=== PATIENT | female | born 1940 | race Hispanic/Latino ===

== ENCOUNTER 2017-04-20 13:03 | Outpatient (CLI) | payer MEDICARE ==
--- NOTE | 2017-04-20 15:49 | Mammography Report ---
BILATERAL MAMMOGRAM: FINDINGS: There are scattered fibroglandular densities (approximately 25%-50% glandular). No mass, distortion, suspicious calcification, or skin change is seen. Right breast surgeries with benign results. No significant change when compared to exams dating back to 2015. CAD was utilized. IMPRESSION: Negative mammogram. There is no mammographic evidence of malignancy. RECOMMENDATION: Follow-up per ACS guidelines. BI-RADS CATEGORY: 1 = Negative ACR BI-RADS MAMMOGRAPHIC CODES: 0 = Needs additional imaging evaluation; 1 = Negative; 2 = Benign; 3 = Probably benign; 4 = Suspicious; 5 = Malignant; 6 = Known biopsy-proven malignancy COMMENT: 1. Dense breast tissue, i.e., adenosis, fibrocystic changes, etc., may obscure an underlying neoplasm. 2. Approximately 10% of cancers are not detected with mammography. 3. A negative mammography report should not delay biopsy if a clinically suspicious mass is present. COMMENT: Patient follow-up letters are generated in [employer].
== END 2017-04-20 13:04 | disposition home or self-care (01) ==
LOC: MAMMO 13:03
PROVIDERS: ATTEND Internal Medicine
DX: Z12.31 Encounter for screening mammogram for malignant neoplasm of breast (principal)
CPT/HCPCS: 77067; G0202

== ENCOUNTER 2019-04-24 12:35 | Outpatient (CLI) | payer MEDICARE ==
--- NOTE | 2019-04-24 14:54 | Mammography Report ---
DIGITAL SCREENING MAMMOGRAM WITH CAD, 04/24/2019 INDICATION: Routine screening mammography. TECHNIQUE: Digital bilateral 2D mammography was obtained in the craniocaudal and mediolateral obliq ue projections. This examination was interpreted with the benefit of Computer-Aided Detection analysi s. COMPARISON: 04/21/2018 and mammograms going back to 04/15/2012 FINDINGS: Breast Density: The breasts are heterogeneously dense, which may obscure small masses. Left asymmetry on both views requires additional imaging. Scattered bilateral benign calcifications. No architectural distortion or suspicious calcifications. There is no evidence of dominant mass, susp icious calcifications or architectural distortion in the right breast. IMPRESSION: Left asymmetry requiring additional imaging. Recommend recall for left lateral and spot c ompression MLO and CC views and left breast ultrasound if needed. Follow up recommendation: Special View: Spot Category 0: Incomplete. Needs additional imaging evaluation and/or prior mammograms for comparison. A "normal" or negative report should not discourage follow up or biopsy of a clinically significant f inding. A written summary of these findings will be mailed to the patient. The patient will be entered into a mammography reporting system which will generate a reminder letter for the patient's next appointmen t at the appropriate interval. The [employer] recommends yearly mammograms starting at age 40 and continuing as l yane as a woman is in good health. Breast MRI is recommended for women with an approximate 20-25% or greater lifetime risk of breast cancer, including women with a strong family history of breast or ova lonnie cancer or who have been treated for Hodgkin's disease. Signer Name: Faustino Ruiz MD Signed: 04/24/2019 2:49 PM Workstation Name: [id number]
== END 2019-04-24 12:36 | disposition home or self-care (01) ==
LOC: MAMMO 12:35
PROVIDERS: ATTEND Internal Medicine
DX: Z12.31 Encounter for screening mammogram for malignant neoplasm of breast (principal)
CPT/HCPCS: 77067

== ENCOUNTER 2019-06-01 07:56 | Outpatient (CLI) | payer MEDICARE ==
--- NOTE | 2019-06-01 10:05 | Ultrasound Report ---
LEFT DIGITAL DIAGNOSTIC MAMMOGRAM WITH CAD 06/01/2019 LEFT COMPLETE BREAST ULTRASOUND INDICATION: Recall to evaluate a left asymmetry identified at screening. ABN MAMMO TECHNIQUE: Digital left mammographic imaging was performed. Spot compression views were obtained. Co mplete ultrasound of all four (4) quadrants was performed. This examination was interpreted with the benefit of Computer-Aided Detection (CAD) analysis. COMPARISON: 04/24/2019 screening mammogram. FINDINGS: Breast Density: The breasts are heterogeneously dense, which may obscure small masses. MAMMOGRAPHIC FINDINGS: ML and spot compression MLO and CC views were performed. An irregular focal as ymmetry persists on all views. ULTRASOUND FINDINGS: Complete sonographic evaluation of all 4 quadrants and retroareolar region was p erformed. Ultrasound demonstrated a solid irregular hypoechoic mass at 12:00 at the edge of the are sylvester measuring 1.6 x 1.4 x 1.2 cm. It produces shadowing and correlates with the mammographic density. A mass at 1:00 5 cm from the nipple produces a dense shadow and contains calcifications. It measures 9 x 8 x 8 mm and correlates with a heavily calcified mass on the mammogram. No other mass is identif ied. Ultrasound of the left axilla demonstrated a couple of benign-appearing lymph nodes. No suspicio us lymph nodes. IMPRESSION: A suspicious 1.6 cm left breast mass at 12:00. Recommend ultrasound-guided needle biopsy. A heavily calcified mass at 1:00 5 cm from the nipple is consistent with chronic benign fat necrosis and correlates with the remote history of a fall with trauma to the breast. I discussed the findings and the recommendation for an ultrasound-guided needle biopsy the patient at the time of the exam. Follow up recommendation: Biopsy BI-RADS Category 4: Suspicious for Malignancy. A "normal" or negative report should not discourage follow up or biopsy of a clinically significant f inding. A written summary of these findings will be mailed to the patient. The patient will be entered into a mammography reporting system which will generate a reminder letter for the patient's next appointmen t at the appropriate interval. According to the [employer], yearly mammograms are recommended starting at age 40 and continuing as long as a woman is in good health. Breast MRI is recommended for women with an don roximately 20-25% or greater lifetime risk of breast cancer, including women with a strong family his tory of breast or ovarian cancer and women who have been treated for Hodgkin's disease. Signer Name: Fautsino Ruiz MD Signed: 06/01/2019 10:01 AM Workstation Name: [id number]
== END 2019-06-01 07:57 | disposition home or self-care (01) ==
LOC: MAMMO 07:56
PROVIDERS: ATTEND Internal Medicine
DX: R92.8 Other abnormal and inconclusive findings on diagnostic imaging of breast (principal); N63.21 Unspecified lump in the left breast, upper outer quadrant

== ENCOUNTER 2019-06-08 14:31 | Outpatient (CLI) | payer MEDICARE ==
--- NOTE | 2019-06-08 15:45 | Ultrasound Report ---
ULTRASOUND-GUIDED NEEDLE CORE BIOPSY LEFT BREAST WITH CLIP PLACEMENT CLINICAL: Left breast mass. COMPARISON: 06/01/2019 FINDINGS: The procedure was explained to the patient and informed consent was obtained. Ultrasound demonstrated the previously identified the previously described solid irregular hypoechoic mass at 12:30 o'clock 2 cm from the nipple.. I marked the breast with a felt tip marker and a timeout was called. The skin was prepped with Chloro -Prep and anesthetized with 1% lidocaine. Needle core biopsy was performed through small dermatotomy using ultrasound guidance, 2% lidocaine wi th epinephrine for deep anesthesia and a 14-gauge Achieve biopsy device. 3 cores were obtained and pl aced in formalin. A HydroMark clip was deployed within the mass. The patient tolerated the procedure well and there were no apparent complications. Hemostasis was ach ieved with minimal effort and a sterile dressing was applied. A post procedure mammogram demonstrated satisfactory clip deployment. She left the department in good condition and was given instructions for wound care and follow-up. IMPRESSION: Uncomplicated ultrasound guided needle core biopsy with clip placement left breast. Signer Name: Faustino Ruiz MD Signed: 06/08/2019 3:41 PM Workstation Name: [id number]
--- NOTE | 2019-06-08 16:17 | Mammography Report ---
DIGITAL DIAGNOSTIC MAMMOGRAM WITH CAD, 06/08/2019 INDICATION: -post clip Lt TECHNIQUE: Digital left mammographic imaging was performed. This examination was interpreted with the benefit of Computer-aided Detection analysis. COMPARISON: 06/01/2019 FINDINGS: Breast Density: The breasts are heterogeneously dense, which may obscure small masses. A biopsy clip is now identified at 12:30 o'clock. The clip position is concordant on the lateral view. Although it is more medial than expected on the CC view, the clip position is concordant with the ultrasound find ing. IMPRESSION: Concordant clip position after ultrasound biopsy. Follow up recommendation: Surgical consult Post biopsy imaging. A "normal" or negative report should not discourage follow up or biopsy of a clinically significant f inding. A written summary of these findings will be mailed to the patient. The patient will be entered into a mammography reporting system which will generate a reminder letter for the patient's next appointmen t at the appropriate interval. According to the [employer], yearly mammograms are recommended starting at age 40 and continuing as long as a woman is in good health. Breast MRI is recommended for women with an don roximately 20-25% or greater lifetime risk of breast cancer, including women with a strong family his tory of breast or ovarian cancer and women who have been treated for Hodgkin's disease. Signer Name: Faustino Ruiz MD Signed: 06/08/2019 4:12 PM Workstation Name: [id number]
== END 2019-06-08 14:32 | disposition home or self-care (01) ==
LOC: SPVWC 14:31
PROVIDERS: ATTEND Internal Medicine
DX: N63.21 Unspecified lump in the left breast, upper outer quadrant (principal); C50.412 Malignant neoplasm of upper-outer quadrant of left female breast; Z88.8 Allergy status to other drugs, medicaments and biological substances
CPT/HCPCS: 88305; 88341; 88342; 88368

== ENCOUNTER 2019-07-10 11:17 | Outpatient (CLI) | payer MEDICARE ==
--- NOTE | 2019-07-10 16:29 | Ultrasound Report ---
COMPLETE BILATERAL BREAST ULTRASOUND HISTORY: Recently diagnosed left breast cancer. Unable to have an MRI. This study is being done to ev aluate for additional tumor in each breast. COMPARISON: 04/24/2019 screening mammogram and left breast ultrasound 06/01/2019 and 06/08/2019. FINDINGS: Complete sonographic evaluation of the right breast including imaging of the four quadrant s and subareolar areas reveals no suspicious finding. A septated benign cyst at 8:00 15 cm from the n ipple measures 8 x 7 x 4 mm and a benign cyst at 8:00 8 cm from the nipple measures 6 x 6 x 4 mm. Complete sonographic evaluation of the left breast including imaging of the four quadrants and subare olar areas reveals a solid irregular hypoechoic mass at 12:00 2 cm from the nipple measuring 2.9 x 1. 7 x 2.7 cm. It correlates with the known cancer. A solid hypoechoic heavily calcified mass at 2:00 5 cm from the nipple measures 0.9 x 0.8 x 0.8 cm and correlates with benign mammographic calcifications . No other significant finding in the left breast. The technologist measured additional structures wh ich I could not reproduce. Ultrasound of the left axilla demonstrated no suspicious lymph nodes. IMPRESSION: 1. A known left breast cancer at 12:00 2 cm from the nipple and no other suspicious lesion of the lef t breast. 2. Benign cysts of the right breast and no suspicious finding of the right breast. BI-RADS Category 6: Known Cancer Signer Name: Faustino Ruiz MD Signed: 07/10/2019 4:24 PM Workstation Name: [id number]
== END 2019-07-10 11:18 | disposition home or self-care (01) ==
LOC: SPVWC 11:17
PROVIDERS: ATTEND Surgery
DX: N60.01 Solitary cyst of right breast (principal); N63.42 Unspecified lump in left breast, subareolar; N63.21 Unspecified lump in the left breast, upper outer quadrant

== ENCOUNTER 2019-10-04 13:26 | Observation (INO) | payer MEDICARE ==
--- NOTE | 2019-10-04 07:32 | Anesthesia Consultation ---
Anesthesia Consult and Med Hx Date of service: 10/04/19 - Airway Anesthetic Teeth Evaluation: Good ROM Head & Neck: Adequate Mental/Hyoid Distance: Adequate Mallampati Class: Class II Intubation Access Assessment: Probably Good - Pulmonary Exam CTA: Yes - Cardiac Exam Cardiac Exam: RRR - Pre-Operative Health Status ASA Pre-Surgery Classification: ASA3 Proposed Anesthetic Plan: General Nerve Block: PEC - Pulmonary Hx Smoking: Yes (quit 35 yrs ago) SOB: Yes (chronic, noncardiac) Hx Sleep Apnea: Yes (no CPAP) - Cardiovascular System Hx Hypertension: Yes Hx Coronary Artery Disease: Yes (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; normal EF on TTE 2019) Hx Heart Attack/AMI: No Hx Angina: No (chronic noncardiac chest pain) Hx Percutaneous Transluminal Coronary Angioplasty (PTCA): No Hx Cardia Arrhythmia: No - Central Nervous System CVA: No Hx Back Pain: Yes - Gastrointestinal Hx Gastroesophageal Reflux Disease: Yes (well controlled) - Endocrine Hx Renal Disease: No Hx Liver Disease: No Hx Insulin Dependent Diabetes: No Hx Non-Insulin Dependent Diabetes: No Hx Thyroid Disease: No - Other Systems Hx Cancer: Yes (breast ca) Hx Obesity: Yes (BMI 40) - Additional Comments Anesthesia Medical History Comments: No hx anesthetic complications.
--- NOTE | 2019-10-04 07:32 | Anesthesia Day of Surgery ---
Anesthesia Day of Surgery - Day of Surgery Patient Examined: Yes Patient H&P Reviewed: Yes Patient is NPO: Yes
--- NOTE | 2019-10-04 10:20 | Mammography Report ---
MAMMOGRAPHIC GUIDED WIRE LOCALIZATION OF THE LEFT BREAST x2 INDICATION: Excisional procedure today COMPARISON: Screening mammogram 04/24/2019, left diagnostic mammogram 06/08/2019, left breast ultrasou nd 07/10/2019 APPROACH: Lateral DEVICE: Kopan's-type wire needle assemblies 7 and 10 cm ANESTHESIA: Local Procedure was discussed with the patient. Procedure was also discussed in advance with Dr. Ayon. Timeout was performed. Using aseptic technique, mammographic guided wire localization of the area of recent biopsy and the spiculated mass was performed successfully bracketing the area with 2 wires. T he initial wire into the mass was placed by me and the second wire was placed by Dr. Waggoner under my supervision. Patient tolerated the procedure well and was sent to the operating suite in good conditi on with marked images. IMPRESSION: Successful mammographic guided wire localization of the left breast x2 Signer Name: Allen Glover MD Signed: 10/04/2019 10:16 AM Workstation Name: [id number]
[~2019-10-04 13:26] MED LIST: BUPIVACAINE-EPINEPHRINE/PF 0.5%-1:200,000 (30 ML) VIAL INFILTRATI ONE; GABAPENTIN 300 MG CAP PO NR; GLYCOPYRROLATE 0.4 MG/2 ML INJ ONE; HYDROmorphone 1 MG/1 ML INJ ONE; LACTATED RINGERS 1,000 ML IV SCH; LACTATED RINGERS 1,000 ML ONE; LIDOCAINE (1%) 10 MG/1 ML VIAL 20 ML MDV ONE; LIDOCAINE MPF (2%) 20 MG/1 ML VIAL 5 ML ONE; MAGNESIUM OXIDE 400 MG TAB PO NR; METHYLENE BLUE 50 MG/10 ML AMP IV ONE; METHYLENE BLUE 50 MG/10 ML AMP ONE; MIDAZOLAM 2 MG/2 ML INJ IV NR; ONDANSETRON 4 MG/2 ML INJ ONE; PHENYLEPHRINE/NS 1,000 MCG/10 ML SYRINGE (OR USE) IV ONE; SUCCINYLCHOLINE CHLORIDE 200 MG/10 ML INJ MDV ONE; WATER FOR IRRIG STERILE 1,500 ML BOTTLE IR ONE; ceFAZolin/Water 2 GM/20 ML 2 GM/20 ML SYRINGE IV NR; dexAMETHasone 4 MG/ML VIAL ONE; fentaNYL 100 MCG/2 ML INJ IV PRN; fentaNYL 100 MCG/2 ML INJ ONE; propofoL 200 MG/20 ML VIAL IV ONE
--- NOTE | 2019-10-04 14:10 | Short Stay Summary ---
Short Stay Documentation Date of service: 10/04/19 - History H&P: obtained from office - Allergies and Medications Current Medications: Allergies bacitracin [From Neosporin ([id number])] Allergy (Verified 09/27/19 10:47) Swelling bacitracin zinc [From Neosporin ([id number])] Allergy (Verified 09/27/19 10:47) Swelling ibuprofen Allergy (Verified 09/27/19 10:47) Swelling neomycin sulfate [From Neosporin ([id number]-[id number])] Allergy (Verified 09/27/19 10:47) Swelling polymyxin B [From Neosporin (ahd-qns-cpofu)] Allergy (Verified 09/27/19 10:47) Swelling Home Medications Medication Instructions Recorded Confirmed Last Taken Type HYDROcodone/APAP 5-325 [[facility] 1 each PO BID 07/27/19 10/04/19 10/03/19 23:55 History 5/325] Meloxicam [Mobic] 7.5 mg PO BID 07/27/19 10/04/19 08/30/19 08:00 History Omeprazole 20 mg PO DAILY 07/27/19 10/04/19 09/30/19 10:00 History Simvastatin 40 mg PO DAILY 07/27/19 10/04/19 10/01/19 21:00 History hydroCHLOROthiazide [HCTZ] 25 mg PO QDAY 07/27/19 10/04/19 10/03/19 12:00 History Active Medications Fentanyl (Sublimaze) 100 mcg IV ONCE PRN PRN Reason: sedation for nerve block Stop: 10/04/19 23:00 Last Admin: 10/04/19 08:59 Dose: 100 mcg Documented by: Fentanyl (Sublimaze) 50 mcg IV Q5MIN PRN PRN Reason: Pain , Severe (7-10) Stop: 10/04/19 23:00 Gabapentin (Gabapentin) 300 mg PO PREOP NR Stop: 10/04/19 23:00 Last Admin: 10/04/19 07:25 Dose: 300 mg Documented by: Cefazolin Sodium (Ancef/Sterile Water 2 Gm/20 Ml) 2 gm in 20 mls @ 80 mls/hr IV PREOP NR; Protocol Stop: 10/04/19 20:00 Lactated Ringer's (Lactated Ringers) 1,000 mls @ 100 mls/hr IV DIRECT TORIBIO Stop: 10/04/19 23:59 Last Admin: 10/04/19 08:45 Dose: 100 mls/hr Documented by: Magnesium Oxide (Mag-Ox) 400 mg PO PREOP NR Stop: 10/04/19 23:00 Last Admin: 10/04/19 07:25 Dose: 400 mg Documented by: Midazolam HCl (Versed) 2 mg IV PREOP NR Stop: 10/04/19 23:00 Last Admin: 10/04/19 08:58 Dose: 2 mg Documented by: - Brief post op/procedure progress note Date of procedure: 10/04/19 Pre-op diagnosis: Left breast cancer upper outer quadrant Post-op diagnosis: same Procedure: Left needle localization partial mastectomy with SLNB Anesthesia: GETA Findings: Left partial mastectomy; left axilla with low uptake and 2 SLNs submitted Surgeon: BRIANA BARKER Forming Roll Operator: DELL GIFFORD Estimated blood loss: other (50 cc) Pathology: list (left partial mastectomy; x2 slns) Specimen disposition: to lab Condition: stable - Disposition Condition at discharge: Good Disposition: DC-01 TO HOME OR SELFCARE Short Stay Discharge Plan Activity: other (no heavy lifting) Diet: regular Wound: keep clean and dry (wear breast binder; may shower in 48 hours; no baths, pools or lakes) Follow up with: NAKIA COREA MD [Primary Care Provider] - 7 Days BRIANA BARKER MD [Staff Physician] - 7 Days
--- NOTE | 2019-10-04 14:24 | Mammography Report ---
Left breast tissue specimen radiograph INDICATION: Excisional procedure today Specimen contains the end of both wires, the site of recent biopsy including the clip and the spicula ronda mass. Findings were reviewed with Dr. Ayon at time of service. IMPRESSION: Satisfactory specimen radiograph Signer Name: Allen Glover MD Signed: 10/04/2019 2:20 PM Workstation Name: [id number]
--- NOTE | 2019-10-04 14:35 | Operative Report ---
Operative Report Operative Report: Operative Report: October 04, 2019 Preoperative diagnosis: Left breast cancer of the upper outer quadrant Postoperative diagnosis: Same Procedure: Left needle localization partial mastectomy of the upper outer quadrant and SLNB Surgeon: Phoebe Ayon MD Fisheries Specialist: Agustin Woodson MD Anesthesia: General Findings: Left breast with wires, mass and clip present within radiograph specimen; x2 SLNs-minimal uptake within the axilla Complications: None EBL: 50 cc Drains: None Disposition: PACU in good condition Indications for operative procedure: This is a 78 year old lady with newly diagnosed left breast cancer of the upper outer quadrant, Stage I [id number] ER/MA positive (left breast cancer at 12:00 position 3-4 cm FN). Patient wanted to proceed with breast conservation with recommendations as well. She understands the role of adjuvant radiation therapy as well as the role of chemotherapy if indicated-Oncotype DX/Mammoprint. She has a personal history of right breast cancer diagnosed in 2003 and underwent a right partial mastectomy with ALND. Genetic testing recently obtained with no significant gene mutation. She has met with medical oncology and radiation oncology as well. She wished to proceed with the above procedure. Procedure in detail: Patient had 2 wires placed by radiologist Dr. Glover and Dr. Waggoner. Dr. Ruiz originally performed her left breast biopsy with findings of invasive ductal cancer at 12:00 position and upon further review of mammogram today radiologist Dr. Glover saw a second area mmore laterally aroundn 1-2:00 position and he question if biopsy clip was discordantly placed although Dr. Ruiz dictated clip concordance. Dr. Glover recommended both areas be removed given second area highly suspicous for malignancy and he thought second area was the mass of concern. Bilateral breast ultrasound performed with no additional masses seen. Radiology placed 2 wires to bracket both areas for excision (Dr. Glover and Dr. Waggoner placed wires). Anesthesia placed left pectoral block. Patient was then taken to the operating room. Gen. anesthesia was administered. The left nipple was injected with radioisotope and 1 cc of Methylene blue dye given minimal uptake from radioisotope. Left breast wires were identified of the upper outer quadrant. Left breast and axilla were prepped and draped in the normal sterile operative fashion. Ultrasound was used as well-mass not well defined on ultrasound, cancer located at the 12:00 position. Timeout was performed. Gamma probe was inserted into the axilla. Minimal uptake was identified within the axilla of less than 10 on the gamma probe. A left axillary incision was made with a 15 blade knife with dissection taken down to the subcutaneous tissues. The axillary fascia was opened with the Bovie cautery. Low uptake was noted that identified two SLNs with no blue dye present. SLNs were sent to pathology for permanent section. The axilla was examined further with no uptake present and ultrasound used as well with benign appearing axillary lymph nodes but nodes were note removed given no uptake present. Did not proceed with an ALND because will await final pathology of SLNs removed but upon examination, nodes were not palpable from SLNs removed and area removed my represent lymphatics. Hemostasis was obtained with Bovie cautery. The axillary cavity was irrigated and suctioned. The axillary fascia was approximated and closed using interrupted 3-0 Vicryl. The subcutaneous tissues were approximated and closed using interrupted 3-0 Vicryl followed by closing of the skin with a running 4-0 Monocryl and skin affix. Attention was then taken towards the left breast. Wires were noted, an upper outer quadrant incision was made with a 15 blade knife. Started with the raising of the superior flap and removal of wire from the skin, the second wire was retracted within the breast cavity; the superior flap was raised with dissection carried down to the pectoralis muscle, followed by raising of the inferior flap, medial flap and lateral flap with all flaps taken down to the pectoralis muscle. The breast area of concern was appropriately removed posteriorly from the pectoralis muscle with the aid of the Bovie cautery. The wires were present as well. Specimen was marked and then sent to pathology and radiology; radiograph specimen with wires, mass and clip present. Breast cavity was irrigated and hemostasis was obtained. The posterior deep breast tissues were approximated and closed using interrupted 3-0 Vicryl. The subcutaneous tissues were approximated and closed using interrupted 3-0 Vicryl followed by closing of the skin with a running 4-0 Monocryl and skin affix. The patient tolerated surgery very well and she was awaken from anesthesia without any complication and transported to PACU in good condition. Once final pathology is available, if no SLNs are present, will discuss with patient about proceeding with an ALND.
[2019-10-04] MEDS ORDERED: GLYCOPYRROLATE 0.4 MG/2 ML INJ ONE (14:49)
[2019-10-04] MEDS ORDERED: ROCURONIUM 50 MG/5 ML INJ IV ONE (14:49)
[2019-10-04] MEDS ORDERED: NEOSTIGMINE 10MG/10 ML INJ MDV ONE (14:49)
[2019-10-04] MEDS ORDERED: METOCLOPRAMIDE 10 MG TAB PO PRN (15:37)
[2019-10-04] MEDS ORDERED: ONDANSETRON 4 MG/2 ML INJ IV PRN (15:37)
[2019-10-04] MEDS ORDERED: diphenhydrAMINE 25 MG CAP PO PRN (15:37)
[2019-10-04] MEDS ORDERED: ACETAMINOPHEN 325 MG TAB PO PRN (15:37)
[2019-10-04] MEDS ORDERED: oxyCODONE /ACETAMINOPHEN 5-325MG TAB PO PRN (15:37)
[2019-10-04] MEDS ORDERED: LACTATED RINGERS 1,000 ML IV SCH (16:00)
--- NOTE | 2019-10-04 18:13 | Post Anesthesia Evaluation ---
- Post Anesthesia Evaluation Patient Participated: Yes Airway Patent: Yes Stable Respiratory Function: Yes Nausea/Vomiting: No Temp > 96.8F: Yes Pain Manageable: Yes Adequeate Hydration: Yes Anesthesia Complications: No
[2019-10-04] MEDS ORDERED: DOCUSATE SODIUM 100 MG CAP PO SCH (22:00)
--- NOTE | 2019-10-05 07:07 | Progress Note ---
Assessment and Plan This is a 78 year old lady POD#1 left partial mastectomy with SLNB. No acute events overnight. 1. Left breast and axillary incision healing well, incision c/d/i. 2. Pain in good control. 3. OOB to hallway. 4. D/C planning for this am. Subjective Date of service: 10/05/19 Principal diagnosis: Left breast cancer upper outer quadrant Interval history: POD#1 left total mastectomy with SLNB Objective - Constitutional Vitals: Vital Signs - 12hr 10/04/19 10/05/19 10/05/19 19:30 00:00 04:37 Temperature 98.6 F 98.6 F 97.3 F L Pulse Rate 66 74 72 Respiratory 16 18 18 Rate Blood Pressure 121/51 Blood Pressure 120/61 104/66 [Right] O2 Sat by Pulse 93 Oximetry General appearance: Present: no acute distress - EENT Eyes: PERRL, EOM intact ENT: hearing intact, dentition normal Ears: bilateral: normal - Neck Neck: supple, normal ROM - Respiratory Respiratory effort: normal - Breasts Breasts: other (left breast and axillary incisions healing well, no hematoma, minimal tenderness, skin well perfused) - Cardiovascular Rhythm: regular Extremities: no ischemia, pulses intact, pulses symmetrical, No edema, normal temperature, normal color, Full ROM - Gastrointestinal General gastrointestinal: Present: soft, non-tender, non-distended Rectal Exam: deferred - Genitourinary Female genitourinary: deferred - Integumentary Integumentary: clear, warm, dry - Musculoskeletal Musculoskeletal: strength equal bilaterally - Neurologic Neurologic: CNII-XII intact, moves all extremities - Psychiatric Psychiatric: appropriate mood/affect, intact judgment & insight, memory intact, cooperative Medications & Allergies - Medications Allergies/Adverse Reactions: Allergies bacitracin [From Neosporin ([id number])] Allergy (Verified 09/27/19 10:47) Swelling bacitracin zinc [From Neosporin ([id number]-[id number])] Allergy (Verified 09/27/19 10:47) Swelling ibuprofen Allergy (Verified 09/27/19 10:47) Swelling neomycin sulfate [From Neosporin ([id number]-jvx-[id number])] Allergy (Verified 09/27/19 10:47) Swelling polymyxin B [From Neosporin ([id number]-muv-[id number])] Allergy (Verified 09/27/19 10:47) Swelling Home Medications: Home Medications Medication Instructions Recorded Confirmed Last Taken Type HYDROcodone/APAP 5-325 [[place] 1 each PO BID 07/27/19 10/04/19 10/03/19 23:55 History 5/325] Meloxicam [Mobic] 7.5 mg PO BID 07/27/19 10/04/19 08/30/19 08:00 History Omeprazole 20 mg PO DAILY 07/27/19 10/04/19 09/30/19 10:00 History Simvastatin 40 mg PO DAILY 07/27/19 10/04/19 10/01/19 21:00 History hydroCHLOROthiazide [HCTZ] 25 mg PO QDAY 07/27/19 10/04/19 10/03/19 12:00 History HYDROcodone/APAP 5-325 [[place] 1 each PO Q6HR PRN #20 tablet 10/04/19 Unknown Rx 5/325] Active Medications: Generic Name Dose Route Start Last Admin Trade Name Freq PRN Reason Stop Dose Admin Acetaminophen 650 mg 10/04/19 15:37 Tylenol PO Q6H PRN Pain MILD(1-3)/Fever >100.5/MORALES Diphenhydramine HCl 25 mg 10/04/19 15:37 Benadryl PO Q8H PRN Itching Docusate Sodium 100 mg 10/04/19 22:00 Colace PO BID TORIBIO Lactated Ringer's 1,000 mls @ 125 mls/hr 10/04/19 16:00 Lactated Ringers IV DIRECT TORIBIO Metoclopramide HCl 10 mg 10/04/19 15:37 Reglan PO Q6H PRN Nausea And Vomiting Ondansetron HCl 4 mg 10/04/19 15:37 Zofran IV Q8H PRN N/V unrelieved by Reglan Oxycodone/Acetaminophen 1 tab 10/04/19 15:37 10/05/19 03:57 Percocet 5/325 PO 1 tab Q6H PRN Administration Pain, Moderate (4-6) Sodium Chloride 10 ml 10/04/19 15:37 Sodium Chloride Flush Syringe 10 Ml IV PRN PRN LINE FLUSH
[2019-10-05 08:49] VITALS: BP 129/57
== END 2019-10-05 09:00 | disposition home or self-care (01) ==
LOC: OR 13:26 → OB 15:37
PROVIDERS: ADMIT Surgery; ATTEND Surgery
DX: Z03.818 Encounter for observation for suspected exposure to other biological agents ruled out (principal); C50.412 Malignant neoplasm of upper-outer quadrant of left female breast; Z79.899 Other long term (current) drug therapy; Z88.2 Allergy status to sulfonamides; Z88.3 Allergy status to other anti-infective agents; Z88.1 Allergy status to other antibiotic agents; Z88.8 Allergy status to other drugs, medicaments and biological substances
CPT/HCPCS: 19281; 19301; 38525; 64450; 76098; 78800; 88307; 88333; 96374; 96375; A9541; G0378; J0330; J0690; J1100; J1170; J2250; J2370; J2405; J2704; J2710; J3010; J7120; Q9968; U0003; 88311; 88342

== ENCOUNTER 2019-11-13 05:49 | Observation (INO) | payer MEDICARE ==
--- NOTE | 2019-11-09 10:51 | Anesthesia Consultation ---
Anesthesia Consult and Med Hx Date of service: 11/13/19 - Airway Anesthetic Teeth Evaluation: Good ROM Head & Neck: Adequate Mental/Hyoid Distance: Adequate Mallampati Class: Class I Intubation Access Assessment: Good (previous easy intubation with MAC 3) - Pulmonary Exam CTA: Yes - Cardiac Exam Cardiac Exam: RRR - Pre-Operative Health Status ASA Pre-Surgery Classification: ASA3 Proposed Anesthetic Plan: General Nerve Block: PEC - Pulmonary Hx Smoking: Yes (quit 35 yrs ago) SOB: Yes (chronic, noncardiac) Hx Sleep Apnea: Yes (no CPAP) - Cardiovascular System Hx Hypertension: Yes Hx Coronary Artery Disease: Yes (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; normal EF on TTE 2019) Hx Heart Attack/AMI: No Hx Angina: No (chronic noncardiac chest pain) Hx Percutaneous Transluminal Coronary Angioplasty (PTCA): No Hx Cardia Arrhythmia: No - Central Nervous System CVA: No Hx Back Pain: Yes Hx Psychiatric Problems: No - Gastrointestinal Hx Gastroesophageal Reflux Disease: Yes (well controlled) - Endocrine Hx Renal Disease: No Hx Liver Disease: No Hx Insulin Dependent Diabetes: No Hx Non-Insulin Dependent Diabetes: No Hx Thyroid Disease: No - Other Systems Hx Cancer: Yes (breast ca) Hx Obesity: Yes (BMI 40) - Additional Comments Anesthesia Medical History Comments: No hx anesthetic complications.
[2019-11-09 10:54] LABS: Calcium 9.6 mg/dL (8.4-10.2)
[2019-11-09 10:58] LABS: Basophils % (Auto) 0.6 % (0.0-1.8); Eosinophils # (Auto) 0.1 K/mm3 (0.0-0.4); Hematocrit 40.9 % (30.3-42.9); Hemoglobin 13.5 gm/dl (10.1-14.3); Lymphocytes # (Auto) 1.6 K/mm3 (1.2-5.4); Lymphocytes % (Auto) 23.9 % (13.4-35.0); Mean Corpuscular HGB Conc 33 % (30-34); Mean Corpuscular Volume 93 fl (79-97); Monocytes # (Auto) 0.7 K/mm3 (0.0-0.8); Platelet Count 250 K/mm3 (140-440); Red Blood Count 4.41 M/mm3 (3.65-5.03); Red Cell Distribution Width 13.6 % (13.2-15.2)
[~2019-11-13 05:49] MED LIST changes: -BUPIVACAINE-EPINEPHRINE/PF 0.5%-1:200,000 (30 ML) VIAL INFILTRATI ONE; -GABAPENTIN 300 MG CAP PO NR; -GLYCOPYRROLATE 0.4 MG/2 ML INJ ONE; -HYDROmorphone 1 MG/1 ML INJ ONE; -LACTATED RINGERS 1,000 ML ONE; -LIDOCAINE (1%) 10 MG/1 ML VIAL 20 ML MDV ONE; -LIDOCAINE MPF (2%) 20 MG/1 ML VIAL 5 ML ONE; -MAGNESIUM OXIDE 400 MG TAB PO NR; -METHYLENE BLUE 50 MG/10 ML AMP IV ONE; -METHYLENE BLUE 50 MG/10 ML AMP ONE; -MIDAZOLAM 2 MG/2 ML INJ IV NR; -ONDANSETRON 4 MG/2 ML INJ ONE; -PHENYLEPHRINE/NS 1,000 MCG/10 ML SYRINGE (OR USE) IV ONE; -SUCCINYLCHOLINE CHLORIDE 200 MG/10 ML INJ MDV ONE; -WATER FOR IRRIG STERILE 1,500 ML BOTTLE IR ONE; -ceFAZolin/Water 2 GM/20 ML 2 GM/20 ML SYRINGE IV NR; -dexAMETHasone 4 MG/ML VIAL ONE; -fentaNYL 100 MCG/2 ML INJ IV PRN; -fentaNYL 100 MCG/2 ML INJ ONE; -propofoL 200 MG/20 ML VIAL IV ONE
[2019-11-13] MEDS ORDERED: GABAPENTIN 300 MG CAP PO NR (06:00)
[2019-11-13] MEDS ORDERED: fentaNYL 100 MCG/2 ML INJ IV PRN (06:00)
[2019-11-13] MEDS ORDERED: MIDAZOLAM 2 MG/2 ML INJ IV NR (06:00)
[2019-11-13] MEDS ORDERED: MAGNESIUM OXIDE 400 MG TAB PO SCH (06:00)
[2019-11-13] MEDS ORDERED: ceFAZolin/Water 2 GM/20 ML 2 GM/20 ML SYRINGE IV NR (06:00)
[2019-11-13] MEDS ORDERED: ACETAMINOPHEN 500 MG TAB PO NR (06:00)
[2019-11-13] MEDS ORDERED: BACTERIOSTATIC SODIUM CHLORIDE 0.9% 30 ML VIAL INFILTRATI ONE (06:13)
[2019-11-13] MEDS ORDERED: dexAMETHasone 4 MG/ML VIAL ONE (07:19)
[2019-11-13] MEDS ORDERED: BUPIVACAINE-EPINEPHRINE/PF 0.5%-1:200,000 (30 ML) VIAL INFILTRATI ONE (07:19)
[2019-11-13] MEDS ORDERED: ONDANSETRON 4 MG/2 ML INJ ONE (07:30)
[2019-11-13] MEDS ORDERED: LIDOCAINE MPF (2%) 20 MG/1 ML VIAL 5 ML ONE (07:30)
[2019-11-13] MEDS ORDERED: ROCURONIUM 50 MG/5 ML INJ IV ONE (07:30)
[2019-11-13] MEDS ORDERED: dexAMETHasone 20 MG/5 ML VIAL ONE (07:30)
[2019-11-13] MEDS ORDERED: METHYLENE BLUE 50 MG/10 ML AMP ONE (07:30)
[2019-11-13] MEDS ORDERED: HYDROmorphone 1 MG/1 ML INJ ONE (07:30)
[2019-11-13] MEDS ORDERED: propofoL 200 MG/20 ML VIAL IV ONE (07:30)
[2019-11-13] MEDS ORDERED: SODIUM CHLORIDE P/F VIAL 10 ML 10 ML ONE (07:31)
[2019-11-13] MEDS ORDERED: SODIUM CHLORIDE 0.9% P/F 10 ML VIAL INFILTRATI ONE (08:40)
[2019-11-13] MEDS ORDERED: METHYLENE BLUE 50 MG/10 ML AMP IRRIGATION ONE (08:40)
--- NOTE | 2019-11-13 08:53 | Anesthesia Day of Surgery ---
Anesthesia Day of Surgery - Day of Surgery Patient Examined: Yes Patient H&P Reviewed: Yes Patient is NPO: Yes
[2019-11-13] MEDS ORDERED: HYDROmorphone 1 MG/1 ML INJ IV PRN (08:54)
[2019-11-13] MEDS ORDERED: WATER FOR IRRIG STERILE 1,500 ML BOTTLE IR ONE (09:08)
[2019-11-13] MEDS ORDERED: LACTATED RINGERS 1,000 ML ONE (10:07)
[2019-11-13] MEDS ORDERED: fentaNYL 100 MCG/2 ML INJ ONE (12:31)
[2019-11-13] MEDS ORDERED: GLYCOPYRROLATE 0.4 MG/2 ML INJ ONE (12:52)
[2019-11-13] MEDS ORDERED: NEOSTIGMINE 10MG/10 ML INJ MDV ONE (12:52)
[2019-11-13] MEDS ORDERED: PHENYLEPHRINE/NS 1,000 MCG/10 ML SYRINGE (OR USE) IV ONE (12:53)
--- NOTE | 2019-11-13 13:12 | Operative Report ---
Operative Report Operative Report: Operative Report: Date of Service: November 13, 2019 Preoperative diagnosis: Left breast cancer of the upper outer quadrant Postoperative diagnosis: Same Procedure: Left total mastectomy with sentinel lymph node biopsy Surgeon: Phoebe Ayon M.D. Prefabricator: Phoenix Marshall M.D. Anesthesia: Gen. Findings: Left total mastectomy; x2 sentinel lymph nodes identified and negative for malignancy on frozen section of pathology Complications: None Drains: 2 19 Divehi JENIFER drains Estimated blood loss: 50-100 cc Disposition: PACU in good condition Indications for operative procedure: This is a 79-year-old lady with newly diagnosed stage II left breast cancer of the upper outer quadrant, ILCA [id number] ER/CA positive. She recently underwent a left partial mastectomy with sentinel lymph node biopsy with no intraoperative lymph nodes identified and final pathology of invasive lobular carcinoma grade 2 of the upper outer quadrant at least 55 mm with a single focus with no DCIS, closest margin less than 0.5 mm from the caudal and deep margins and all other margins less than 0.5 mm from lateral margin and 1 mm from medial margin. Discussed with patient regarding margin revision versus total mastectomy and I favor total mastectomy given area of cancer was not initially seen on any imaging-typical for ILCA. Patient wished to proceed with a left total mastectomy as well. Also discussed will reattempt sentinel lymph node biopsy with a double injection of radioisotope as well as additional methylene blue dye. Patient also with a prior history of right breast cancer in 2003 and underwent a right lumpectomy with SLNB. She declined plastic surgery. She understands to role of adjuvant XRT and medical oncology will obtain Oncotype DX for evaluation for adjuvant chemotherapy. She wished to proceed with the above procedure. Procedure in detail: Anesthesia placed left pectoral muscle block. The patient was taken to the operating room and was placed supine. Gen. anesthesia was administered. The left nipple was injected with two doses of radioisotope and 2 cc of methylene blue with 2 cc of saline. Left chest and axilla was prepped and draped in the normal sterile operative fashion. Timeout was performed. Typical mastectomy incision marking was made. Attention was taken towards the left breast. A gamma probe was inserted into the axilla to identify the sentinel lymph node location with uptake noted. Skin markings were made to include the area of known cancer. A skin incision was made with a 10 blade knife and dissection taken down to the subcutaneous tissues. First began raising of the superior flap to the level of the clavicle superiorly and posteriorly to the pectoralis muscle. Followed by raising of the medial flap to the level of the sternum and posteriorly to the pectoralis muscle. Followed by raising of the lateral flap to the level of the latissimus dorsi muscle and taken down posteriorly. The gamma probe was inserted into the axilla, the axillary fascia was opened and 2 SLNS were identified that were dissected free and sent to pathology. All SLNs sent to pathology with findings negative for malignancy on frozen section. Then proceeded with raising of the inferior flap to the level of the inframammary fold taken posterior to the pectoralis muscle. The mastectomy/breast was removed from the pectoralis muscle without incident. The specimen was appropriately marked and sent to pathology. Hemostasis was obtained. The chest wall cavity was irrigated. Two 19 Divehi JENIFER drains were placed. Throughout the case breast tissue was noted to be vascular with oozing throughout but hemostasis was well obtained prior to closure. Sarahy placed as well. The subcutaneous tissues were approximated and closed using interrupted 3- 0 Vicryl and the skin closed using 4-0 running Monocryl followed by dermabond. She tolerated surgery very well and was awaken from anesthesia without any complications and transported to PACU in good condition.
--- NOTE | 2019-11-13 13:15 | Short Stay Summary ---
Short Stay Documentation Date of service: 11/13/19 - History H&P: obtained from office - Allergies and Medications Current Medications: Allergies bacitracin [From Neosporin ([id number]-ajl-[id number])] Allergy (Verified 11/07/19 11:37) Swelling bacitracin zinc [From Neosporin (bzs-akt-wywro)] Allergy (Verified 11/07/19 11:37) Swelling ibuprofen Allergy (Verified 11/07/19 11:37) Swelling neomycin sulfate [From Neosporin (fgo-cto-esprv)] Allergy (Verified 11/07/19 11:37) Swelling polymyxin B [From Neosporin (emq-rwp-vonbd)] Allergy (Verified 11/07/19 11:37) Swelling Home Medications Medication Instructions Recorded Confirmed Last Taken Type Meloxicam [Mobic] 7.5 mg PO BID 07/27/19 11/13/19 1 Week Ago History ~11/06/19 Omeprazole 20 mg PO DAILY 07/27/19 11/13/19 2 Weeks Ago History ~10/30/19 Simvastatin 40 mg PO DAILY 07/27/19 11/13/19 1 Month Ago History ~10/14/19 hydroCHLOROthiazide [HCTZ] 25 mg PO QDAY 07/27/19 11/13/19 11/12/19 History HYDROcodone/APAP 5-325 5 - 325 mg PO PRN PRN 11/13/19 11/13/19 11/13/19 04:30 History Active Medications Acetaminophen (Tylenol) 1,000 mg PO ONCE NR Stop: 11/13/19 23:59 Last Admin: 11/13/19 06:50 Dose: 1,000 mg Documented by: Fentanyl (Sublimaze) 100 mcg IV ONCE PRN PRN Reason: sedation for nerve block Last Admin: 11/13/19 07:22 Dose: 100 mcg Documented by: Gabapentin (Gabapentin) 300 mg PO PREOP NR Stop: 11/13/19 23:59 Last Admin: 11/13/19 06:50 Dose: 300 mg Documented by: Hydromorphone HCl (Dilaudid) 0.5 mg IV Q10MIN PRN PRN Reason: Pain , Severe (7-10) Stop: 11/13/19 20:00 Cefazolin Sodium (Ancef/Sterile Water 2 Gm/20 Ml) 2 gm in 20 mls @ 80 mls/hr IV PREOP NR; Protocol Stop: 11/13/19 23:00 Lactated Ringer's (Lactated Ringers) 1,000 mls @ 100 mls/hr IV DIRECT TORIBIO Stop: 11/13/19 23:59 Last Admin: 11/13/19 06:45 Dose: 100 mls/hr Documented by: Magnesium Oxide (Mag-Ox) 400 mg PO PREOP TORIBIO Stop: 11/13/19 23:59 Last Admin: 11/13/19 06:50 Dose: 400 mg Documented by: Midazolam HCl (Versed) 2 mg IV PREOP NR Stop: 11/13/19 23:59 Last Admin: 11/13/19 07:22 Dose: 2 mg Documented by: - Brief post op/procedure progress note Date of procedure: 11/13/19 Pre-op diagnosis: Left breast cancer upper outer quadrant Post-op diagnosis: same Procedure: Left total mastectomy with SLNB Anesthesia: GETA Findings: Left tot mastectomy; x2 SLNs and negative for malignancy on frozen section Surgeon: BRIANA BARKER Estimated blood loss: 50-100ml Pathology: list (left total mastectomy; x2 slns) Specimen disposition: to lab Condition: stable - Disposition Condition at discharge: Good Disposition: DC/TX-02 SHRT-TRM GEN HOSP IP Short Stay Discharge Plan Activity: other (no heavy lifting) Diet: regular Wound: keep clean and dry (wear breast binder) Follow up with: NAKIA COREA MD [Primary Care Provider] - 7 Days BRIANA BARKER MD [Staff Physician] - 7 Days
[2019-11-13] MEDS ORDERED: ONDANSETRON 4 MG/2 ML INJ IV PRN (13:16)
[2019-11-13] MEDS ORDERED: oxyCODONE /ACETAMINOPHEN 5-325MG TAB PO PRN (13:16)
[2019-11-13] MEDS ORDERED: METOCLOPRAMIDE 10 MG TAB PO PRN (13:16)
[2019-11-13] MEDS ORDERED: diphenhydrAMINE 25 MG CAP PO PRN (13:16)
[2019-11-13] MEDS ORDERED: ACETAMINOPHEN 325 MG TAB PO PRN (13:16)
[2019-11-13] MEDS ORDERED: MORPHINE 2 MG/1 ML INJ IV PRN (13:17)
[2019-11-13] MEDS ORDERED: LACTATED RINGERS 1,000 ML IV SCH (14:00)
[2019-11-13] MEDS: DOCUSATE SODIUM 100 MG CAP PO SCH (21:36)
--- NOTE | 2019-11-14 06:38 | Progress Note ---
Assessment and Plan This is a 79 year old lady with Stage II left breast cancer UOQ, POD#1 left total mastectomy with SLNB. 1. No acute events overnight. Pain in good control. 2. Left chest incision healing well, JENIFER drains with appr output, no hematoma. 3. JENIFER drain education. 4. Home health at discharge. 5. OOB to hallway. 6. D/C planning for later today. Subjective Date of service: 11/14/19 Principal diagnosis: Left breast cancer UOQ, Stage II Interval history: POD#1 left total mastectomy with SLNB Objective - Constitutional Vitals: Vital Signs - 12hr 11/13/19 11/13/19 11/14/19 20:45 22:09 00:45 Temperature 98.3 F 98.2 F Pulse Rate 78 73 Respiratory 18 20 Rate Blood Pressure 145/68 Blood Pressure 132/63 [Right] O2 Sat by Pulse 91 92 93 Oximetry General appearance: Present: no acute distress - EENT Eyes: PERRL, EOM intact ENT: hearing intact, clear oral mucosa, dentition normal Ears: bilateral: normal - Neck Neck: supple, normal ROM - Respiratory Respiratory effort: normal - Breasts Breasts: other (left chest incision c/d/i; no hematoma; skin well perfused; JENIFER drain with appr output) - Cardiovascular Rhythm: regular Extremities: no ischemia, pulses intact, pulses symmetrical, No edema, normal temperature, normal color, Full ROM - Gastrointestinal General gastrointestinal: Present: soft, non-tender, non-distended Rectal Exam: deferred - Genitourinary Female genitourinary: deferred - Integumentary Integumentary: clear, warm, dry - Musculoskeletal Musculoskeletal: strength equal bilaterally - Neurologic Neurologic: CNII-XII intact, focal deficits, moves all extremities - Psychiatric Psychiatric: appropriate mood/affect, intact judgment & insight, memory intact, cooperative - Labs CBC & Chem 7: 11/09/19 10:25 11/09/19 10:25 Medications & Allergies - Medications Allergies/Adverse Reactions: Allergies bacitracin [From Neosporin ([id number]-[id number])] Allergy (Verified 11/07/19 11:37) Swelling bacitracin zinc [From Neosporin (mzy-thl-pnvfe)] Allergy (Verified 11/07/19 11:37) Swelling ibuprofen Allergy (Verified 11/07/19 11:37) Swelling neomycin sulfate [From Neosporin (yvr-kni-zxjws)] Allergy (Verified 11/07/19 11:37) Swelling polymyxin B [From Neosporin ([id number]-nxp-hqpxl)] Allergy (Verified 11/07/19 11:37) Swelling Home Medications: Home Medications Medication Instructions Recorded Confirmed Last Taken Type Meloxicam [Mobic] 7.5 mg PO BID 07/27/19 11/13/19 1 Week Ago History ~11/06/19 Omeprazole 20 mg PO DAILY 07/27/19 11/13/19 2 Weeks Ago History ~10/30/19 Simvastatin 40 mg PO DAILY 07/27/19 11/13/19 1 Month Ago History ~10/14/19 hydroCHLOROthiazide [HCTZ] 25 mg PO QDAY 07/27/19 11/13/19 11/12/19 History HYDROcodone/APAP 5-325 5 - 325 mg PO PRN PRN 11/13/19 11/13/19 11/13/19 04:30 H istory oxyCODONE /ACETAMINOPHEN [Percocet 1 tab PO Q6HR PRN #20 tablet 11/13/19 Unknown Rx 5/325] Active Medications: Generic Name Dose Route Start Last Admin Trade Name Freq PRN Reason Stop Dose Admin Acetaminophen 650 mg 11/13/19 13:16 Tylenol PO Q6H PRN Pain MILD(1-3)/Fever >100.5/MORALES Diphenhydramine HCl 25 mg 11/13/19 13:16 Benadryl PO Q8H PRN Itching Docusate Sodium 100 mg 11/13/19 22:00 11/13/19 21:36 Colace PO 100 mg BID TORIBIO Administration Fentanyl 100 mcg 11/13/19 06:00 11/13/19 07:22 Sublimaze IV 100 mcg ONCE PRN Administration sedation for nerve block Lactated Ringer's 1,000 mls @ 125 mls/hr 11/13/19 14:00 Lactated Ringers IV DIRECT TORIBIO Metoclopramide HCl 10 mg 11/13/19 13:16 Reglan PO Q6H PRN Nausea And Vomiting Morphine Sulfate 2 mg 11/13/19 13:17 Morphine IV Q4H PRN Pain, Moderate (4-6) Ondansetron HCl 4 mg 11/13/19 13:16 Zofran IV Q8H PRN N/V unrelieved by Jose Luis Oxycodone/Acetaminophen 1 tab 11/13/19 13:16 Percocet 5/325 PO Q6H PRN Pain, Moderate (4-6) Sodium Chloride 10 ml 11/13/19 13:16 Sodium Chloride Flush Syringe 10 Ml IV PRN PRN LINE FLUSH
[2019-11-14 12:19] VITALS: BP 150/67
[2019-11-14] MEDS: DOCUSATE SODIUM 100 MG CAP PO SCH (12:51)
== END 2019-11-14 17:05 | disposition home or self-care (01) ==
LOC: OR 05:49 → OB 13:16
PROVIDERS: ADMIT Surgery; ATTEND Surgery
DX: Z03.818 Encounter for observation for suspected exposure to other biological agents ruled out (principal); C50.412 Malignant neoplasm of upper-outer quadrant of left female breast; Z88.1 Allergy status to other antibiotic agents; Z88.8 Allergy status to other drugs, medicaments and biological substances
CPT/HCPCS: 19303; 36415; 38525; 64450; 78800; 80048; 85025; 88307; 88309; 88331; A9541; G0378; J0690; J1100; J1170; J2250; J2370; J2405; J2704; J2710; J3010; J7120; Q9968; U0003; 88333

== ENCOUNTER 2019-12-15 08:31 | Outpatient (CLI) | payer MEDICARE | END 2019-12-15 08:32 | disposition home or self-care (01) | LOC: LABHHL 08:31 | PROVIDERS: ATTEND Surgery | DX: N64.9 Disorder of breast, unspecified (principal) | CPT/HCPCS: 87075; 87116 ==

== ENCOUNTER 2020-05-07 13:50 | Outpatient (CLI) | payer MEDICARE ==
--- NOTE | 2020-05-07 17:30 | Mammography Report ---
DIGITAL SCREENING MAMMOGRAM WITH CAD, 05/07/2020 INDICATION: Routine screening mammography. TECHNIQUE: Digital right 2D mammography was obtained in the craniocaudal and mediolateral oblique pr ojections. This examination was interpreted with the benefit of Computer-Aided Detection analysis. COMPARISON: 04/24/2019. FINDINGS: Breast Density: There are scattered areas of fibroglandular density. There is no evidence of dominant mass, suspicious calcifications or architectural distortion in eithe r breast. IMPRESSION: Follow up recommendation: Routine yearly BI-RADS Category 1: Negative. A "normal" or negative report should not discourage follow up or biopsy of a clinically significant f inding. A written summary of these findings will be mailed to the patient. The patient will be entered into a mammography reporting system which will generate a reminder letter for the patient's next appointmen t at the appropriate interval. The [employer] recommends yearly mammograms starting at age 40 and continuing as l yane as a woman is in good health. Breast MRI is recommended for women with an approximate 20-25% or greater lifetime risk of breast cancer, including women with a strong family history of breast or ova lonnie cancer or who have been treated for Hodgkin's disease. Signer Name: South Nicole MD Signed: 05/07/2020 5:26 PM Workstation Name: [email or web address]
== END 2020-05-07 13:51 | disposition home or self-care (01) ==
LOC: SPVWC 13:50
PROVIDERS: ATTEND Surgery
DX: Z12.31 Encounter for screening mammogram for malignant neoplasm of breast (principal); C50.412 Malignant neoplasm of upper-outer quadrant of left female breast

== ENCOUNTER 2021-05-21 12:33 | Outpatient (CLI) | payer MEDICARE ==
--- NOTE | 2021-05-23 07:59 | Ultrasound Report ---
ULTRASOUND BREAST LEFT LIMITED, 05/21/2021 CLINICAL INFORMATION / INDICATION: HX OF BREAST CA/SWELLING BELOW MASTECTOMY INCISION. TECHNIQUE: Targeted ultrasound evaluation was performed of the area of interest. COMPARISON: None. FINDINGS: Ultrasound imaging of the left axilla near the mastectomy scar demonstrates a benign-appearing lymph node. IMPRESSION: No sonographic evidence of malignancy. Benign-appearing lymph node. Follow up recommendation: Routine yearly BI-RADS Category 2: BENIGN. A normal or "negative" report should not preclude biopsy or follow-up of a clinically suspicious find ing. Signer Name: Jesus Alberto Gaviria DO Signed: 05/21/2021 1:43 PM Workstation Name: [email or web address]
== END 2021-05-21 12:34 | disposition home or self-care (01) ==
LOC: SPVWC 12:33
PROVIDERS: ATTEND Internal Medicine Hematology & Oncology
DX: R92.8 Other abnormal and inconclusive findings on diagnostic imaging of breast (principal); Z85.3 Personal history of malignant neoplasm of breast

== ENCOUNTER 2021-08-28 13:39 | Outpatient (CLI) | payer MEDICARE ==
--- NOTE | 2021-08-28 16:12 | Ultrasound Report ---
ULTRASOUND BREAST LEFT LIMITED, 08/28/2021 CLINICAL INFORMATION / INDICATION: Patient has a history of left breast cancer status post left maste ctomy. Patient presents for evaluation of an area of palpable concern in the region of the scar along the left chest wall. TECHNIQUE: Targeted ultrasound evaluation was performed of the area of interest. COMPARISON: Left breast ultrasound 05/21/2021 FINDINGS: Targeted ultrasound of the area of palpable concern along the left chest wall is unremarkable. No brianna picious cystic or solid lesion identified. IMPRESSION: 1. There is no sonographic abnormality to account for the area of palpable concern along the left radha st wall, therefore clinical correlation is recommended. Follow up recommendation: Back to schedule. BI-RADS Category 2: BENIGN. A normal or "negative" report should not preclude biopsy or follow-up of a clinically suspicious find ing. Signer Name: Yumiko Padilla MD Signed: 08/28/2021 4:08 PM Workstation Name: [email or web address]
== END 2021-08-28 13:40 | disposition home or self-care (01) ==
LOC: US 13:39
PROVIDERS: ATTEND Surgery
DX: R22.2 Localized swelling, mass and lump, trunk (principal); E66.3 Overweight; Z85.3 Personal history of malignant neoplasm of breast; Z80.0 Family history of malignant neoplasm of digestive organs